=== PATIENT | female | born 1970 | race Caucasian/White ===

== ENCOUNTER 2022-08-16 08:05 | Day surgery (SDC) | payer BC ==
[~2022-08-16] VITALS: Ht 157.5 cm; Wt 71.7 kg
[2022-08-16] MEDS ORDERED: MEPERIDINE 50 MG/ML VIAL ONE (10:04)
[2022-08-16] MEDS ORDERED: MIDAZOLAM HCL 5 MG/5 ML VIAL ONE (10:05)
[2022-08-16 14:15] VITALS: BP_SYST 148
== END 2022-08-16 11:25 | disposition home or self-care (01) ==
LOC: SDS 08:05 → SMU 08:23 → SDS 11:25
PROVIDERS: ATTEND Internal Medicine
DX: R19.5 Other fecal abnormalities (principal); K29.50 Unspecified chronic gastritis without bleeding; Z80.0 Family history of malignant neoplasm of digestive organs; K21.00 Gastro-esophageal reflux disease with esophagitis, without bleeding; Z79.899 Other long term (current) drug therapy
CPT/HCPCS: 43239; 88305; 88312; 88313; J2175; J2250